=== PATIENT | male | born 1980 | race Caucasian/White ===

== ENCOUNTER 2022-04-23 12:36 | Emergency (ER) | payer SELFPAY ==
[~2022-04-23] VITALS: Ht 170.2 cm; Wt 57.0 kg
[2022-04-23 12:55] VITALS: BP 96/55
[2022-04-23 18:48] LABS: CLARITY URINE CLOUDY (CLEAR); COLOR URINE YELLOW (YELLOW); KETONES URINE 1+ (NEGATIVE); LEUKOCYTE ESTERASE URINE 3+ (NEGATIVE); NITRITE URINE NEGATIVE (NEGATIVE); OCCULT BLOOD URINE 3+ (NEGATIVE); PH URINE 5.5 (4.5-8.0); PROTEIN URINE NEGATIVE (NEGATIVE); SPECIFIC GRAVITY URINE 1.011 (1.005-1.030); UROBILINOGEN URINE 0.2 E.U./dL (0.2-1.0)
[2022-04-23] MEDS ORDERED: IBUPROFEN 400MG TABLET PO ONE (19:00)
[2022-04-23] MEDS ORDERED: PHEN-815 MT (20:24)
[2022-04-23] MEDS ORDERED: CEPH500C2 MT (20:24)
[2022-04-26 04:07] LABS: NEISSERIA GONORRHOEAE NAA Positive (Negative)
== END 2022-04-23 20:43 | disposition home or self-care (01) ==
LOC: ER 12:36
DX: N39.0 Urinary tract infection, site not specified (principal)
CPT/HCPCS: 81003; 87491; 87591; 99283

== ENCOUNTER 2022-04-29 20:37 | Emergency (ER) | payer SELFPAY ==
[~2022-04-29 20:37] MED LIST: CEPH500C2 MT; PHEN-815 MT
== END 2022-04-29 23:08 | disposition left against medical advice (07) ==
LOC: ER 20:37
DX: Z53.21 Procedure and treatment not carried out due to patient leaving prior to being seen by health care provider (principal)